=== PATIENT | male | born 1980 | race Caucasian/White ===

== ENCOUNTER 2019-06-19 18:30 | Emergency (ER) | payer OTHER, SELFPAY ==
[2019-06-19 18:34] VITALS: BP 133/101; PULSE 84; RESP 18; TEMP 36.5; O2SAT 100
[2019-06-19 18:40] VITALS: PULSE 79; RESP 18; O2SAT 99
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
[2019-06-19 19:20] LABS: Basophils # 0.1 10^3/uL (0.0-0.1); Basophils % 0.8 %; Eosinophils # 0.1 10^3/uL (0.0-0.8); Eosinophils % 1.7 %; Hematocrit 46.9 % (42.0-52.0); Lymphocytes # 1.4 10^3/uL (0.8-4.8); Lymphocytes % 23.8 %; Mean Corpuscular Hemoglobin 32.1 pg (28.0-34.0); Mean Corpuscular Volume 100.2 fL (80-94); Mean Platelet Volume 9.8 fL (7.4-10.4); Monocytes # 0.6 10^3/uL (0.2-0.9); Monocytes % 9.5 %; Neutrophils # 3.8 10^3/uL (1.8-7.7); Nucleated Red Blood Cells % 0 %; Platelet Count 360 10^3/cmm (130-400); Red Blood Count 4.68 10^6/uL (4.1-5.3); White Blood Count 5.9 10^3/uL (4.0-10.0)
[2019-06-19 19:37] LABS: Alanine Aminotransferase 17 U/L (0-41); Albumin Level 4.6 g/dL (3.5-5.2); Alkaline Phosphatase 79 IU/L (40-130); Anion Gap 14.6 (5-19); Aspartate Amino Transferase 16 U/L (0-40); Blood Urea Nitrogen 12 mg/dL (6-20); Calcium 10.3 mg/dL (8.5-10.5); Carbon Dioxide 29 mmol/L (22-29); Chloride 99 mmol/L (98-107); Globulin 2.6 g/dL (1.3-4.6); Glomerular Filtration Rate 93.9 mL/min (90-130); Glucose 90 mg/dL (65-115); Osmolality Calculated 282 mOsm/kg (285-295); Potassium 4.6 mmol/L (3.5-5.1); Sodium 138 mmol/L (136-145); Total Bilirubin 0.5 mg/dL (0.15-1.2); Total Protein 7.2 g/dL (6.6-8.7)
[2019-06-19 19:38] LABS: Troponin T (5th) Once 6 ng/mL (0-15)
--- NOTE | 2019-06-19 19:40 | ECG_ITS ---
Measurements Intervals [place] Rate: 80 P: 66 SC: 126 QRS: 87 QRSD: 82 T: 67 QT: 361 QTc: 418 SINUS RHYTHM No previous ECG available for comparison Electronically Signed On 06-20-2019 19:58:48 CDT by Ziggy Montes De Oca M.D. [email or web address]
[2019-06-19 20:08] VITALS: BP 112/81; PULSE 78; RESP 18; O2SAT 100
== END 2019-06-19 20:09 | disposition home or self-care (01) ==
PROVIDERS: Emergency Provider Nurse Practitioner Family
DX: R55 Syncope and collapse (principal); F17.210 Nicotine dependence, cigarettes, uncomplicated
CPT/HCPCS: 12345; 36415; 70450; 80053; 84484; 85025; 93005; 99282; 99283